=== PATIENT | female | born 1975 | race African-American/Black ===

== ENCOUNTER 2020-01-08 11:43 | Emergency (ER) | payer OTHER ==
[2020-01-08 12:06] VITALS: BP 141/84; PULSE 88; TEMP 98.3; BMI 27.3
== END 2020-01-08 13:17 | disposition home or self-care (01) ==
LOC: JERFT 11:43
DX: S05.01XA Injury of conjunctiva and corneal abrasion without foreign body, right eye, initial encounter (principal)
CPT/HCPCS: 99283-25